=== PATIENT | male | born 1990 | race Caucasian/White ===

== ENCOUNTER 2019-03-04 18:31 | Emergency (ER) | payer SELFPAY ==
[2019-03-04] MEDS ORDERED: NORMAL SALINE 1000 ML 1,000 ML IV ONE (18:55)
--- NOTE | 2019-03-04 18:58 | ER Document Report ---
ED General - General Chief Complaint: Possible Overdose Stated Complaint: POSSIBLE OVER DOSE Time Seen by Provider: 03/04/19 18:42 Notes: Patient is a 29-year-old male that presents to the emergency department for chief complaint of syncopal episode. Patient was brought in by EMS he was apparently at a [employer] and found to be acting "funny" and that was assisted down to the floor and became unresponsive, please respond, at that time he was noted to have constricted pupils, was given IN Narcan 4 mg, and became more responsive, and appropriate. At this time the patient states that he thinks he was very stressed out which caused in the past he states he has had blackout episodes in the past, he adamantly denies using any drugs, specifically narcotics, he denies any other medical problems, other than having anxiety and stress which he has a history of. He denies having any chest pain, shortness of breath, lightheadedness, dizziness, headache at this time. Denies any nausea, vomiting or abdominal pain. Patient significant other apparently has been arrested for heroin possession by police. Past Medical History: Anxiety Past Surgical History: Denies surgical history Social History: Admits to smoking cigarettes, denies alcohol or drug use. Family History: Reviewed and noncontributory for presenting illness Allergies: Reviewed, see documented allergy list. REVIEW OF SYSTEMS: Other than noted above, the 12 point review of systems was reviewed with the patient and were negative, all pertinent findings are included in the HPI. PHYSICAL EXAMINATION: Vital signs reviewed, nursing noted reviewed. GENERAL: Well-appearing, well-nourished and in no acute distress. HEAD: Atraumatic, normocephalic. EYES: Eyes appear normal, extraocular movements intact, sclera anicteric, conjunctiva are normal. ENT: nares patent, oropharynx clear without exudates. Moist mucous membranes. NECK: Normal range of motion, supple without lymphadenopathy LUNGS: Breath sounds clear to auscultation bilaterally and equal. No wheezes r ales or rhonchi. HEART: Heart rate tachycardic, regular rhythm, no audible murmur. ABDOMEN: Soft, nontender, normoactive bowel sounds. No rebound, guarding, or rigidity. No masses appreciated. EXTREMITIES: Nontender, good range of motion, no pitting or edema. NEUROLOGICAL: No focal neurological deficits. Moves all extremities spontaneously Motor and sensory grossly intact on exam. PSYCH: Normal mood, normal affect. SKIN: Warm, Dry, normal turgor, no rashes or lesions noted on exposed skin TRAVEL OUTSIDE OF THE [place] IN LAST 30 DAYS: No - Related Data Allergies/Adverse Reactions: No Known Allergies Allergy (Unverified 03/04/19 18:42) Past Medical History - Social History Smoking Status: Current Every Day Smoker Chew tobacco use (# tins/day): No Frequency of alcohol use: Occasional Drug Abuse: Marijuana Family History: Reviewed & Not Pertinent Patient has suicidal ideation: No Patient has homicidal ideation: No Physical Exam - Vital signs Vitals: Temp Pulse Resp BP Pulse Ox 98.4 F 103 H 12 140/95 H 98 03/04/19 18:41 03/04/19 18:41 03/04/19 18:41 03/04/19 18:41 03/04/19 18:41 Course - Re-evaluation Re-evalutation: Patient seen and examined, vital signs reviewed. Patient was speaking in complete sentences, and was appropriate on my exam, only mildly tachycardic, blood work was ordered for his possible syncopal episode, although it does sound like the patient had used an opiate and result in the overdose and was given Narcan and was improved, and given that his spouse has been arrested for heroin possession. Patient work-up was ordered, however he wished to leave AGAINST MEDICAL ADVICE, he was answering questions appropriately, and acknowledged the risks of leaving AGAINST MEDICAL ADVICE under the presumptive diagnosis of syncope and opiate overdose. - Vital Signs Vital signs: Temp Pulse Resp BP Pulse Ox 98.4 F 103 H 12 140/95 H 98 03/04/19 18:41 03/04/19 18:41 03/04/19 18:41 03/04/19 18:41 03/04/19 18:41 - EKG Interpretation by Me Additional EKG results interpreted by me: EKG demonstrates sinus tachycardia with a ventricular rate of 163-minute, normal axis, normal intervals, no evidence of acute ischemia in this EKG, compared to prior EKG from 12/25/2014, at that time patient had a normal rate. Otherwise no acute changes. Discharge - Discharge Clinical Impression: Syncope Qualifiers: Syncope type: unspecified Qualified Code(s): R55 - Syncope and collapse Condition: Stable Disposition: AGAINST MEDICAL ADVICE
[2019-03-04 19:18] VITALS: BP 151/111
--- NOTE | 2019-03-05 07:38 | EKG REPORT ---
SEVERITY:- OTHERWISE NORMAL ECG - SINUS TACHYCARDIA : Confirmed by: Abraham Phillip MD 05-Mar-2019 07:37:40
== END 2019-03-04 19:12 | disposition left against medical advice (07) ==
LOC: ER 18:31
DX: R55 Syncope and collapse (principal); F17.210 Nicotine dependence, cigarettes, uncomplicated
CPT/HCPCS: 93005; 93010; 99284

== ENCOUNTER 2019-07-21 22:57 | Emergency (ER) | payer SELFPAY ==
--- NOTE | 2019-07-21 23:17 | ER Document Report ---
ED General - General Chief Complaint: Possible Overdose Stated Complaint: UNRESPONSIVE,POSSIBLE OVERDOSE Time Seen by Provider: 07/21/19 23:11 Mode of Arrival: Medic Information source: Patient, Emergency Med Personnel TRAVEL OUTSIDE OF THE [place] IN LAST 30 DAYS: No - HPI Onset: Just prior to arrival Onset/Duration: Sudden Quality of pain: No pain Severity: Severe Pain Level: Denies Associated symptoms: None Exacerbated by: Other - drug use Relieved by: Denies Similar symptoms previously: No Recently seen / treated by doctor: No Notes: 29 year old male with a history of a prior opiate overdose brought in by EMS for a likely opiate overdose. The patient says he snorted heroin and then he blacked out. Apparently EMS was called and administered 1mg intranasal Narcan and 1mg IV Narcan and the patient became more responsive. The patient was alert and oriented on ER arrival but his pupils were somewhat pinpoint. The patient has no complaints at this time other than feeling somewhat tired. - Related Data Allergies/Adverse Reactions: No Known Allergies Allergy (Unverified 03/04/19 18:42) Past Medical History - General Information source: Patient, Emergency Med Personnel - Social History Smoking Status: Current Every Day Smoker Frequency of alcohol use: None Drug Abuse: Other - patient has used Opiates and Heroin in the past. Lives with: Spouse/Significant other Family History: Reviewed & Not Pertinent Patient has suicidal ideation: No Patient has homicidal ideation: No Review of Systems - Review of Systems Constitutional: No symptoms reported, Other - drug overdose EENT: No symptoms reported Cardiovascular: No symptoms reported Respiratory: No symptoms reported Gastrointestinal: No symptoms reported Genitourinary: No symptoms reported Male Genitourinary: No symptoms reported Musculoskeletal: No symptoms reported Skin: No symptoms reported Hematologic/Lymphatic: No symptoms reported Neurological/Psychological: No symptoms reported -: Yes All other systems reviewed and negative Physical Exam - Vital signs Vitals: Resp 15 07/21/19 23:01 - Notes Notes: GENERAL: Well-appearing, well-nourished and in no acute distress. HEAD: Atraumatic, normocephalic. EYES: Pupils equal round and reactive to light but somewhat pinpint, extraocular movements intact, sclera anicteric, conjunctiva are normal. ENT: Nares patent, oropharynx clear without exudates. Moist mucous membranes. NECK: Normal range of motion, supple without lymphadenopathy or JVD. LUNGS: Breath sounds clear to auscultation bilaterally and equal. No wheezes rales or rhonchi. HEART: Regular rate and rhythm without murmurs, rubs or gallops. ABDOMEN: Soft, nontender, normoactive bowel sounds. No guarding, no rebound. No masses appreciated. EXTREMITIES: Normal range of motion, no pitting or edema. No clubbing or cyanosis. NEUROLOGICAL: Cranial nerves II through XII grossly intact. Normal speech, normal gait. PSYCH: Normal mood, normal affect. SKIN: Warm, Dry, normal turgor, no rashes or lesions noted. Course - Re-evaluation Re-evalutation: 07/21/19 23:26 The patient seems to have had an accidental overdose on Heroin which he says he snorted. The patient was given Narcan 1mg intranasal and 1mg IV by EMS and he became responsive. Plan is to observe the patient in the ER to ensure Narcan does not wear off too quickly. Patient denies SI of any kind. Patient says he does not normally use drugs and this was very stupid of him. 07/22/19 02:54 The patient was observed for several hours without any further serious side effects of opiate overdose. Patient is safe for outpatient follow up. - Vital Signs Vital signs: Temp Pulse Resp BP Pulse Ox 97.9 F 13 129/81 H 95 07/21/19 23:08 07/22/19 02:00 07/22/19 00:00 07/22/19 02:00 - Laboratory Result Diagrams: 07/21/19 23:25 07/21/19 23:25 Laboratory results interpreted by me: 07/21/19 07/21/19 07/22/19 23:25 23:25 02:12 WBC 13.5 H Lymph % (Auto) 10.2 L Absolute Neuts (auto) 11.2 H Seg Neutrophils % 82.9 H Glucose 143 H Urine Protein 30 H Urine Glucose (UA) 50 H Salicylates < 1.0 L Acetaminophen < 10 L Discharge - Discharge Clinical Impression: Opiate abuse, episodic Overdose Qualifiers: Encounter type: subsequent encounter Injury intent: accidental or unintentional Qualified Code(s): T50.901D - Poisoning by unspecified drugs, medicaments and biological substances, accidental (unintentional), subsequent encounter Condition: Stable Disposition: HOME, SELF-CARE Instructions: Drug Toxicity ([facility]), Drug Effects ([facility]) Additional Instructions: Follow up with a primary care doctor (information for follow up is provided) and consider follow up with outpatient mental health/psychiatry. You were given Narcan today to reverse life threatening effects of opiates today. Referrals: GARFIELD BUSH MD [ACTIVE STAFF] - Follow up as needed
[2019-07-21 23:34] LABS: ABSOLUTE EOSINOPHILS # (AUTO) 0.1 10^3/uL (0.0-0.6); BASOPHILS % (AUTO) 0.3 % (0-2); EOSINOPHILS % (AUTO) 0.7 % (0-6); PLATELET COUNT 274 10^3/uL (150-450); TOTAL CELLS COUNTED % (AUTO) 100 %
[2019-07-21 23:46] LABS: ABSOLUTE LYMPHOCYTES (AUTO) 1.4 10^3/uL (0.5-4.7); ABSOLUTE MONOCYTES (AUTO) 0.8 10^3/uL (0.1-1.4); ABSOLUTE NEUT (AUTO) 11.2 10^3/uL (1.7-8.2); HEMOGLOBIN 15.1 g/dL (13.5-17.0); LYMPHOCYTES % (AUTO) 10.2 % (13-45); MEAN CORPUSCULAR HEMOGLOBIN 27.5 pg (27.0-33.4); MEAN CORPUSCULAR HGB CONC 33.6 g/dL (32.0-36.0); MEAN CORPUSCULAR VOLUME 82 fl (80-97); MONOCYTES % (AUTO) 5.9 % (3-13); RED CELL DISTRIBUTION WIDTH 13.4 % (11.5-14.0); SEGMENTED NEUTROPHILS % (AUTO) 82.9 % (42-78); WHITE BLOOD COUNT 13.5 10^3/uL (4.0-10.5)
[2019-07-22 00:32] VITALS: BP 129/81
[2019-07-22 00:43] LABS: ALBUMIN 4.2 g/dL (3.5-5.0); ALKALINE PHOSPHATASE 61 U/L (38-126); ASPARTATE AMINO TRANSFERASE 20 U/L (17-59); BILIRUBIN,DIRECT 0.3 mg/dL (0.0-0.4); BILIRUBIN,TOTAL 0.3 mg/dL (0.2-1.3); BLOOD UREA NITROGEN 10 mg/dL (7-20); CALCIUM 8.9 mg/dL (8.4-10.2); CARBON DIOXIDE 27 mmol/L (22-30); GLUCOSE 143 mg/dL (75-110); POTASSIUM 3.9 mmol/L (3.6-5.0); TOTAL PROTEIN 7.3 g/dL (6.3-8.2)
[2019-07-22 00:44] LABS: ANION GAP 10 (5-19); CHLORIDE 103 mmol/L (98-107)
[2019-07-22 00:46] LABS: ACETAMINOPHEN < 10 ug/mL (10-30); ALCOHOL < 10 mg/dL (NONE DETECTED); SALICYLATE < 1.0 mg/dL (2.0-20.0)
[2019-07-22 02:24] LABS: APPEARANCE,URINE SLIGHTLY-CLOUDY; BILIRUBIN,URINE NEGATIVE (NEGATIVE); CALCIUM OXALATE CRYSTALS,URINE FEW /HPF; COLOR,URINE YELLOW; GLUCOSE, URINE 50 mg/dL (NEGATIVE); KETONES,URINE NEGATIVE (NEGATIVE); LEUKOCYTE ESTERASE,URINE NEGATIVE (NEGATIVE); NITRITE,URINE NEGATIVE (NEGATIVE); PROTEIN,URINE 30 mg/dL (NEGATIVE); URINE SPECIFIC GRAVITY 1.019; UROBILINOGEN,URINE NEGATIVE mg/dL (<2.0)
[2019-07-22 02:39] LABS: URINE AMPHETAMINES SCREEN NEGATIVE; URINE BARBITURATES SCREEN NEGATIVE; URINE BENZODIAZEPINES SCREEN NEGATIVE; URINE COCAINE SCREEN NEGATIVE; URINE MARIJUANA (THC) SCREEN NEGATIVE; URINE METHADONE SCREEN NEGATIVE; URINE PHENCYCLIDINE SCREEN NEGATIVE
== END 2019-07-22 03:08 | disposition home or self-care (01) ==
LOC: ER 22:57
DX: T40.601A Poisoning by unspecified narcotics, accidental (unintentional), initial encounter (principal); F11.10 Opioid abuse, uncomplicated
CPT/HCPCS: 36415; 80053; 80307; 81001; 85025; 99284